=== PATIENT | female | born 2000 | race African-American/Black ===

== ENCOUNTER → 2022-12-03 09:16 | Outpatient (CLI) | payer OTHER, SELFPAY ==
[2022-12-03 12:42] LABS: COVID19 -Nasal RAPID Negative (Negative)
== END ==
PROVIDERS: Visit Provider Surgery
DX: Z20.822 Contact with and (suspected) exposure to COVID-19 (principal); Z01.812 Encounter for preprocedural laboratory examination
CPT/HCPCS: 87635; C9803

== ENCOUNTER 2022-12-04 11:43 | Day surgery (SDC) | payer OTHER, SELFPAY ==
[2022-11-30 14:38] VITALS: BMI 25.0
[2022-12-04] VITALS (10 sets, daily range): BP systolic 113–122; BP diastolic 64–87; PULSE 80–129; RESP 13–18; TEMP 36.2–36.6; O2SAT 95–100; BMI 25.0
--- NOTE | 2022-12-04 | PATH_ITS ---
[facility] Accession Number: [id number] No. of containers..01 Tissue . 01 Material submitted: . gluteal cleft - GLUTEAL CLEFT . 01 Clinical history: . EXCISION OF PILONIDAL CYST . 01 Diagnosis: Gluteal Cleft, Excision: Dermal fibrosis with cystic epidermal invagination and associated chronic inflammation, compatible with the clinical concern for pilonidal cyst. MRV 12/11/2022 1616 Local . 01 Comment: A PAS fungal stain is performed on block A1, which is negative for fungal hyphae. . 01 Electronically signed: . Jose Carlos Flores MD, Dermatopathologist NPI- [id number] . 01 Gross description: . The specimen is received in formalin labeled with the patient's name, , and gluteal cleft, and consists of an unoriented ellipse of brown wrinkled skin measuring 9.5 x 3.7 cm and excised to a depth of 1.5 cm. The margin is inked blue, and sectioning reveals a possible cystic structure. The remaining cut surface is yellow to raya and unremarkable. Health Informatics Advisor sections are submitted in cassettes A1-A2. ([id number]) /MRV 12/11/2022 1343 Local . 01 Pathologist provided ICD-10: L05.92 . 01 CPT . 781738, [id number] Specimen Comment: A courtesy copy of this report has been sent to [phone] Performed at: 01 [facility] [address] [place] [address] [id number] MD Noel Schmidt MD Phone: [phone]
[2022-12-04] MEDS: LACTATED RINGERS 1,000 ML 42 ML IV ×2 (12:46→16:18)
--- NOTE | 2022-12-04 13:50 | PM.PREOP ---
Pre-operative Note COVID-19 COVID-19 status: Negative Result date/Date tested (Pos, Neg/Pending): 12/03/22 Interval Note History & Physical reviewed/Exam performed by Physician: Yes Changes to H&P: No ASA Class (for procedural sedation): I
--- NOTE | 2022-12-04 15:15 | SUR.PREOP ---
Apologized to patient for delay due to surgeon and then due to lack of anesthesiology staff due to need for epidural in Labor and Delivery. V/U. Assisted patient to bathroom.
[2022-12-04] MEDS: CLINDAMYCIN 900 MG/50 ML PIGGYBACK 50 MG IV (15:41)
--- NOTE | 2022-12-04 15:56 | SUR.OPER ---
Prone on padded OR bed, head in foam head support, gel chest rolls, gel pad under knees, pillow under lower legs, toes free of pressure, arms secured on padded arm boards at <90 degrees abduction. Safety belt at thigh.
[2022-12-04] MEDS: BUPIVACAINE 0.5% W/ EPI (PF) 30 ML VIAL INJ (16:20)
--- NOTE | 2022-12-04 17:11 | P.OP_ITS ---
Operative Date/Time/Diagnoses Date of procedure: 12/04/22 Time of procedure: 17:11 Pre-op diagnosis: Pilonidal disease Post-op diagnosis: same Procedure & Clinicians Procedure: Camargo procedure Same procedure as scheduled: Yes Surgeon: Jacob Sanchez Anesthesia Type: General Operative Notes Procedure in detail: The patient was marked in preop and lines were drawn to delineate the gluteal cleft. The patient was then brought to the operating room and general endotrac heal anesthesia was induced. The patient was placed prone on the or table. The buttocks were taped to the rails of the table. The gluteal cleft and anus were prepped with Betadine and draped in the usual fashion. A time-out was performed. We made the Camargo incision with the specimen including the gluteal cleft itself and skin to the right side of the gluteal cleft. We created a flap on the left side. There was no deedee purulence in the gluteal cleft. We injected additional Marcaine in the deepest aspect of the wound as well as in the subcutaneous tissue. Some of the scar tissue over the sacrum was released. A 15 Japanese round Juan drain was placed into the wound and brought out through a right gluteal stab incision. This drain was secured to the skin with a nylon stitch. The tape was then released and we proceeded to close the incision in layers using multiple interrupted 3-0 Vicryl sutures in the deep layers. The wound came together without tension and 3-0 Vicryl dermal sutures were used to bring the skin flaps together. Finally a running 4 Monocryl subcuticular stitch was used to close the skin and Dermabond was applied. The drain was connected to bulb suction. EBL: 10 mL Post-operative Disposition: PACU
[2022-12-04] MEDS: HYDROCODONE/ACET 5/325 TABLET 1 TAB PO (18:09)
== END 2022-12-04 18:45 | disposition home or self-care (01) ==
PROVIDERS: Referring Provider Surgery; Visit Provider Surgery
PROC: (CPT 11770; principal; 2022-12-04 13:15)
DX: L05.91 Pilonidal cyst without abscess (principal)
CPT/HCPCS: 11770; 81025; J1100; J2250; J2405; J2704; J3010

== ENCOUNTER 2023-02-09 19:19 | Emergency (ER) | payer OTHER, SELFPAY ==
[2023-02-09 19:35] VITALS: BP 115/59; PULSE 103; RESP 16; TEMP 37.2; O2SAT 98; BMI 24.7
[2023-02-09] MEDS: ONDANSETRON 4 MG ODT SL (20:03)
[2023-02-09 21:03] LABS: Bacteria Urine Occasional (0-1); Culture Indicated Urine Cult Not Indicated; Mucus Urine 2+ (Negative); RBC Urine 1-5/HPF (0-5/HPF); Squamous Epithelial Cell Urine 0-1 /HPF (0-5/HPF); WBC Urine 0-1/HPF (0-5/HPF)
[2023-02-09 21:28] LABS: Ictotest Urine Negative (Negative)
--- NOTE | 2023-02-09 23:14 | ED.NAVMDI ---
HPI - Nausea/Vomiting/Diarrhea General Chief complaint: Nausea/Vomiting/Diarrhea Stated complaint: Fever, vomiting, body aches, chills Time Seen by Provider: 02/09/23 19:34 Mode of arrival: Family Vehicle History of Present Illness HPI Narrative: Otherwise healthy 22-year-old young woman currently on her menstrual cycle presents with diarrhea and vomiting. Early this morning she had 2 episodes of emesis that was nonbloody . She is continued to be somewhat nauseated but has not had additional emesis. She hasHad some nonbloody diarrhea without significant abdominal pain or cramping. She describes a fever up to 101.5. She has general malaise but no cough Related Data Allergies Allergy/AdvReac Type Severity Reaction Status Date / Time lidocaine Allergy Seizure Verified 02/09/23 19:39 Patient History Medical History Anxiety Depression Healthy female adult Surgical History History of tonsillectomy and adenoidectomy Social History household members: friend(s) Smoking Status: Never smoker alcohol intake: current Smoking Status: Never smoker alcohol intake frequency: holidays/special occasions only Substance Use Type: does not use Exam Initial Vital Signs Initial Vital Signs: Vital Signs Temperature 98.9 F 02/09/23 19:35 Pulse Rate 103 H 02/09/23 19:35 Respiratory Rate 16 02/09/23 19:35 Blood Pressure 115/59 L 02/09/23 19:35 Pulse Oximetry 98 02/09/23 19:35 Oxygen Delivery Method Room Air 02/09/23 19:35 General: Healthy appearing, in no acute distress. Able to give a complete and coherent history. Well-nourished well-developed HEENT: Moist mucous membranes, normal sclera with reactive pupils, Neck: no cervical adenopathy, supple Respiratory: Lungs are clear to auscultation, no wheezing no rales no rhonchi. Full and symmetrical air movement Cardiac: Regular rate and rhythm no murmurs no bruits Abdomen: Soft, nontender, good bowel tones, no flank pain Skin: Warm and dry, no rashes Neurologic: Grossly neurologically intact with no obvious asymmetries or abnormalities Extremities: No trauma, well perfused Psych: Cooperative, appropriate insight and affect Course Orders Ordered: ED Orders 02/09/23 20:51 Urine Microscopic Stat 02/09/23 21:26 Ictotest Urine Stat Discontinued Medications Ondansetron HCl (Ondansetron 4 Mg Odt) 4 mg SL NOW ONE Stop: 02/09/23 20:02 Last Admin: 02/09/23 20:03 Dose: 4 mg Documented By: COUNTS INCLUDE 234 BEDS AT THE [facility] Vital Signs Vital signs: Vital Signs - 8 hr 02/09/23 19:35 Temperature 98.9 F Pulse Rate 103 H Respiratory Rate 16 Blood Pressure 115/59 L Pulse Oximetry 98 Oxygen Delivery Method Room Air MDM - Nausea/Vomiting/Diarrhea Lab Data Labs: Lab Results 02/09/23 02/09/23 Range/Units 20:51 21:26 Ur Bilirubin Confirm Negative (Negative) Urine RBC 1-5/hpf (0-5/HPF) Urine WBC 0-1/hpf (0-5/HPF) Ur Squamous Epith Cells 0-1 /hpf (0-5/HPF) Urine Bacteria Occasional (0-1) (None) Urine Mucus 2+ H (Negative) Ur Culture Indicated? Cult not indicated Point of Care Testing Test Results Negative Urine Dip Bedside Urine Glucose Negative Bedside Urine Bilirubin ++ 2 Bedside Urine Ketone - Negative Urine Specific [place] 1.030 Bedside Urine Occult Blood +++ Bedside Urine pH 5.5 Bedside Urine Protein +/- 15 Bedside Urine Urobilinogen - Negative Bedside Urine Nitrite - Negative Bedside Urine Leukocytes - Negative Esterase MDM Narrative Medical decision making narrative: CC:Nausea and vomiting. Acute onset new diagnosis uncertain prognosis. Complicating co-morbidities: Currently menstruating Corroborating data: Data collected from: patient, Differential considered: viral gastroenteritis, appendicitis, food poisoning, Exam documented above, pertinent findings: benign exam Treatments: oral Zofran with moderately nausea no persistent vomiting Discussion: nausea and vomiting, uncertain etiology no evidence of severe dehydration, sepsis, surgical abdomen or need for additional workup or imaging at this time. She will be discharged home with instructions on maintaining hydration and a small course of Zofran to use as needed. Discussed reasons to return to the emergency department she is safe for discharge home Discharge Plan Departure Patient Disposition: Home Clinical Impression: Vomiting and diarrhea Instructions: DI for Vomiting -- Adult Activity Restrictions/Additional Instructions: thank you for coming in today I am sorry that you are feeling unwell. I have given you some Zofran, a nausea medicine, to use at home. Please make sure that you are drinking plenty of fluids. Typically diarrhea will resolve itself and unless it is prolific I would not recommend any [id number] antidiarrheal medications. It is okay to use Tylenol for the Fever,aches and pains. If you find that you are getting worse or develop any new symptoms, please feel free to return to the emergency department for further evaluation. Referrals: ProviderBrianna [Primary Care Provider] - Stand Alone Forms: Patient Portal/API
[2023-02-09 23:15] VITALS: BP 109/72; PULSE 94; O2SAT 97
[2023-02-09] MEDS: ONDANSETRON 4 MG ODT PREPACK 1 BOTTLE MISC (23:25)
== END 2023-02-09 23:27 | disposition home or self-care (01) ==
PROVIDERS: Emergency Provider Emergency Medicine
DX: R11.2 Nausea with vomiting, unspecified (principal); R19.7 Diarrhea, unspecified
CPT/HCPCS: 81003; 81015; 81025; 99282; 99283